=== PATIENT | female | born 1955 | race Caucasian/White ===

== ENCOUNTER → 2017-07-08 | Outpatient (CLI) | payer BC ==
[~2017-07-08] MED LIST: AMLO2.5T PO; AMLODIPINE BES2.5 MG; ASPIRIN 81MG TA81 MG PO; ASPIRIN CHILDRE81 M1 PO; CLOPIDOGREL75 M2; IMDUR 60MG. TAB60 MG; IMDUR60 MG PO; LEVOTHROID0.1 MG PO; LEVOTHYROXINE0.1 M1; LEVOTHYROXINE0.1 MG PO; LISINOPRIL HCTZ1 TAB PO; MELOXICAM15 MG; METOPROLOL TAR100 MG; METOPROLOL TAR100 MG PO; MOBIC15 MG PO; NITROGLYCERIN0.4 MG SL; PLAVIX 75MG TAB75 MG PO; PRAVACHOL 40MG40 MG; PRAVACHOL 40MG40 MG PO; PRAVASTATIN 40M40 MG PO
[2017-07-08 10:39] LABS: BUN 24 mg/dL (7-18)
[2017-07-08 10:40] LABS: GFR (ESTIMATED) 85 ML/MIN (59-)
== END ==
LOC: LAB 08:36
PROVIDERS: Physician Assistant
DX: I25.10 Atherosclerotic heart disease of native coronary artery without angina pectoris (principal); E78.5 Hyperlipidemia, unspecified